=== PATIENT | female | born 1990 | race Asian ===

== ENCOUNTER → 2022-03-11 | Outpatient (CLI) | payer BC ==
[2022-03-11 08:08] LABS: HEMATOCRIT. 38.3 % (36.0-48.0); HEMOGLOBIN. 12.9 g/dL (12.0-16.0); MEAN CORPUSCULAR HEMOGLOBIN 30.7 pg (28.0-32.0); MEAN PLATELET VOLUME 7.6 fl (7.4-10.4); PLATELET 368 x1000/uL (130-400); RED CELL DISTRIBUTION WIDTH 13.2 % (11.6-14.6)
[2022-03-11 08:22] LABS: CHLORIDE 102 mEq/L (98-107)
[2022-03-11 08:40] LABS: HDL CHOLESTEROL 54 mg/dL (40-59); LDL CHOLESTEROL 71 mg/dL (5-100); T4 FREE 1.13 ng/dL (0.76-1.46)
[2022-03-11 09:02] LABS: VITAMIN B12 SERUM 543 pg/mL (211-911)
[2022-03-11 11:16] LABS: PLATELET ESTIMATE NORMAL
[2022-03-12 08:13] LABS: ESTRADIOL 68.7 pg/mL (.); FOLICLE STIMULATING HORMONE 6.3 mIU/mL (.); THYROID PEROXIDASE ANTIBODY 10 IU/mL (0-34); VITAMIN D 25-OH 55.4 ng/mL (30.0-100.0)
== END | disposition home or self-care (01) ==
LOC: LAB 07:33
PROVIDERS: ATTEND Family Medicine
DX: R53.83 Other fatigue (principal); I10 Essential (primary) hypertension
CPT/HCPCS: 36415; 80053; 80061; 82306; 82607; 82670; 83001; 83036; 84403; 84439; 84443; 84481; 85025; 86376

== ENCOUNTER → 2022-08-21 | Outpatient (CLI) | payer BC ==
[2022-08-21 08:45] LABS: HEMATOCRIT. 35.6 % (36.0-48.0); HEMOGLOBIN. 12.4 g/dL (12.0-16.0); MEAN CORPUSCULAR VOLUME 92.1 fL (81.0-99.0); MEAN PLATELET VOLUME 7.6 fl (7.4-10.4); PLATELET 385 x1000/uL (130-400); RED BLOOD CELL COUNT 3.86 mill/uL (4.2-5.4); RED CELL DISTRIBUTION WIDTH 13.2 % (11.6-14.6)
[2022-08-21 08:47] LABS: CLARITY URINE CLEAR (CLEAR); COLOR URINE YELLOW (YELLOW); KETONES URINE NEGATIVE (NEGATIVE); LEUKOCYTE ESTERASE URINE NEGATIVE (NEGATIVE); NITRITE URINE NEGATIVE (NEGATIVE); OCCULT BLOOD URINE 3+ (NEGATIVE); PH URINE 7.5 (4.5-8.0); PROTEIN URINE NEGATIVE (NEGATIVE); SPECIFIC GRAVITY URINE 1.007 (1.005-1.030); UROBILINOGEN URINE 0.2 E.U./dL (0.2-1.0)
[2022-08-21 09:10] LABS: CHLORIDE 104 mEq/L (98-107)
[2022-08-21 23:27] LABS: PLATELET ESTIMATE NORMAL
[2022-08-23 13:10] LABS: *ANTI-DNA(DS)Ab Qn <1 IU/mL (0-9); *RNP AB 7.9 AI (0.0-0.9); *SJOGREN'S ANTI-SS-A 2.4 AI (0.0-0.9); *SJOGREN'S ANTI-SS-B <0.2 AI (0.0-0.9); *SMITH AB 0.8 AI (0.0-0.9)
[2022-08-24 15:08] LABS: ACTIN (SMOOTH MUSCLE) ANTIBODY 10 Units (0-19)
[2022-08-24 17:11] LABS: CYC CITRULLINATED PEP IgG/IgA 6 units (0-19)
== END | disposition home or self-care (01) ==
LOC: LAB 07:28
PROVIDERS: ATTEND Internal Medicine Rheumatology
DX: M32.9 Systemic lupus erythematosus, unspecified (principal); Z79.899 Other long term (current) drug therapy
CPT/HCPCS: 36415; 80053; 81003; 85025; 85651; 86038; 86160; 86200; 86431